=== PATIENT | male | born 1990 | race American Indian/Alaskan Native ===

== ENCOUNTER 2022-03-31 18:58 | Emergency (ER) | payer SELFPAY ==
--- NOTE | 2022-03-31 19:52 | Cat Scan Report ---
CT head/brain wo con INDICATION / CLINICAL INFORMATION: 31 years Male; neuro deficits <6hrs or sx present upon awakening. TECHNIQUE: Routine CT head without contrast. All CT scans at this location are performed using CT dos e reduction for ALARA by means of automated exposure control. COMPARISON: None. FINDINGS: BRAIN / INTRACRANIAL CONTENTS: No acute hemorrhage, mass effect, midline shift, hydrocephalus, or acu te, large territorial infarct. No signs of significant atrophy or chronic infarct. No significant whi te matter abnormality seen. CRANIOCERVICAL JUNCTION: No significant abnormality. ORBITS: No significant abnormality of visualized orbits. SINUSES / MASTOIDS: There is a focal dehiscence of the lamina papyracea on the left, which should be of no clinical significance. ADDITIONAL FINDINGS: None. IMPRESSION: 1. No focal mass, hemorrhage, hydrocephalus, or acute, large territorial infarct. Signer Name: Han Bell MD, III Signed: 03/31/2022 7:48 PM Workstation Name: [id number]
[2022-03-31] MEDS ORDERED: ACETAMINOPHEN 500 MG TAB PO ONE (20:08)
[2022-03-31 21:01] LABS: Basophils % (Auto) 0.1 % (0.0-1.8); Eosinophils # (Auto) 0.1 K/mm3 (0.0-0.4); Eosinophils % (Auto) 0.5 % (0.0-4.3); Hematocrit 45.8 % (35.5-45.6); Hemoglobin 14.5 gm/dl (11.8-15.2); Lymphocytes # (Auto) 2.9 K/mm3 (1.2-5.4); Lymphocytes % (Auto) 22.8 % (13.4-35.0); Mean Corpuscular HGB Conc 32 % (32-34); Mean Corpuscular Volume 88 fl (84-94); Monocytes # (Auto) 0.8 K/mm3 (0.0-0.8); Monocytes % (Auto) 6.5 % (0.0-7.3); Platelet Count 195 K/mm3 (140-440); Red Blood Count 5.21 M/mm3 (3.65-5.03); Red Cell Distribution Width 15.6 % (13.2-15.2)
[2022-03-31 21:06] LABS: BUN/Creatinine Ratio 6; Blood Urea Nitrogen 9 mg/dL (9-20); Calcium 8.9 mg/dL (8.4-10.2); Hemolysis Index 27
[2022-03-31 21:10] LABS: INR 1.03 (0.87-1.13)
[2022-03-31 21:11] LABS: Partial Thromboplastin Time 31.8 Sec. (24.2-36.6)
[2022-03-31] MEDS ORDERED: diphenhydrAMINE 50 MG/ML VIAL IV ONE (23:16)
[2022-03-31] MEDS ORDERED: KETOROLAC 30 MG/1 ML INJ IV ONE (23:16)
[2022-03-31] MEDS ORDERED: METOCLOPRAMIDE 10 MG/2 ML INJ IV ONE (23:16)
--- NOTE | 2022-04-01 00:56 | Emergency Department Report ---
ED Headache HPI - General Chief Complaint: Neuro Symptoms/Deficit Stated Complaint: MIGRAINES/LT SIDE NUMBNESS/VISION ISSUES Source: patient - History of Present Illness Initial Comments: Patient is a 31-year-old -Vietnamese male with no past medical history who presents to the ED with complaint of acute onset persistent intractable headache in the frontal scalp that radiates to the parietal scalp for the last 2 days, worse in the last 6 hours. Patient states that the pain is constant and persistent with photophobia and nausea. Patient states that he took [id number] medications with no relief. Patient denies traumatic injury, fall, heavy lifting, chest pain or shortness of breath, fever, chills, nasal and sinus congestion, sore throat, dysphagia, dysphonia, neck pain or change in vision, seizures, dizziness or syncope. Timing/Duration: waxing and waning, other (2 days) Quality: severe, constant, pressure, sharp Head Injury Location: frontal Recent Head Trauma: no recent headache/trauma Associated Symptoms: denies symptoms, facial pain, nausea/vomiting. denies: confusion, fever/chills, flushing, loss of consciousness, nasal congestion, nasal drainage, numbness in legs/feet, rash, seizures, sinus infection, stiff neck, vision changes, weakness Allergies/Adverse Reactions: Allergies No Known Allergies Allergy (Verified 03/31/22 19:24) Home Medications: Ambulatory Orders Amoxicillin/K Clav Tab [Augmentin 875 mg] 1 tab PO Q12HR #20 tab 04/01/22 Butalb/Acetamin/Caff 50-325-40 [Fioricet 50-325-40] 1 - 2 tab PO Q6HR PRN #15 tab 04/01/22 Ibuprofen [Motrin] 600 mg PO Q8H PRN #24 tablet 04/01/22 Ondansetron [Zofran Odt] 4 mg PO Q8HR PRN #15 tab.rapdis 04/01/22 ED Review of Systems ROS: Stated complaint: MIGRAINES/LT SIDE NUMBNESS/VISION ISSUES Other details as noted in HPI Constitutional: denies: chills, fever Eyes: denies: eye pain, eye discharge, vision change ENT: other (frontal sinus pain and pressure). denies: ear pain, throat pain Respiratory: denies: cough, shortness of breath, wheezing Cardiovascular: denies: chest pain, palpitations Endocrine: no symptoms reported Gastrointestinal: denies: abdominal pain, nausea, vomiting, diarrhea Genitourinary: denies: urgency, dysuria Musculoskeletal: denies: back pain, joint swelling, arthralgia Skin: denies: rash, lesions Neurological: headache (frontal). denies: weakness, paresthesias Psychiatric: denies: anxiety, depression Hematological/Lymphatic: denies: easy bleeding, easy bruising ED Past Medical Hx - Medications Home Medications: Home Medications Medication Instructions Recorded Confirmed Last Taken Type Amoxicillin/K Clav Tab [Augmentin 1 tab PO Q12HR #20 tab 04/01/22 Unknown Rx 875 mg] Butalb/Acetamin/Caff 50-325-40 1 - 2 tab PO Q6HR PRN #15 tab 04/01/22 Unknown Rx [Fioricet 50-325-40] Ibuprofen [Motrin] 600 mg PO Q8H PRN #24 tablet 04/01/22 Unknown Rx Ondansetron [Zofran Odt] 4 mg PO Q8HR PRN #15 tab.rapdis 04/01/22 Unknown Rx ED Physical Exam - General Limitations: No Limitations General appearance: alert, in no apparent distress - Head Head exam: Present: atraumatic, normocephalic, normal inspection - Eye Eye exam: Present: normal appearance, PERRL, EOMI Pupils: Present: normal accommodation - ENT ENT exam: Present: normal exam, normal orophraynx, mucous membranes moist, TM's normal bilaterally, normal external ear exam - Neck Neck exam: Present: normal inspection, full ROM. Absent: tenderness - Respiratory Respiratory exam: Present: normal lung sounds bilaterally. Absent: respiratory distress, wheezes, rales, rhonchi, chest wall tenderness, accessory muscle use, decreased breath sounds, prolonged expiratory - Cardiovascular Cardiovascular Exam: Present: normal rhythm, bradycardia, normal heart sounds. Absent: systolic murmur, diastolic murmur, rubs, gallop - GI/Abdominal GI/Abdominal exam: Present: soft, normal bowel sounds. Absent: tenderness, guarding, rebound, hyperactive bowel sounds, hypoactive bowel sounds, organomegaly - Extremities Exam Extremities exam: Present: normal inspection, full ROM, normal capillary refill. Absent: tenderness - Back Exam Back exam: Present: normal inspection, full ROM. Absent: tenderness, CVA tenderness (R), CVA tenderness (L), muscle spasm, paraspinal tenderness, vertebral tenderness - Neurological Exam Neurological exam: Present: alert, oriented X3, CN II-XII intact, normal gait, reflexes normal - Psychiatric Psychiatric exam: Present: normal affect, normal mood - Skin Skin exam: Present: warm, dry, intact, normal color. Absent: rash ED Course Vital Signs 03/31/22 19:20 Temperature 97.9 F Pulse Rate 57 L Respiratory 18 Rate Blood Pressure 126/83 O2 Sat by Pulse 96 Oximetry ED Medical Decision Making - Lab Data Result diagrams: 03/31/22 20:21 03/31/22 20:21 - Radiology Data Radiology results: report reviewed, image reviewed [facility] [address] [place] [address] Cat Scan Report Signed Patient: DALIA REYES MR#: [id number] : 1990 Acct:[id number] Age/Sex: 31 / M ADM Date: 03/31/22 Loc: ED Attending Dr: Ordering Physician: JOSE BAKER MD Date of Service: 03/31/22 Procedure(s): CT head/brain wo con Accession Number(s): [id number] cc: JOSE BAKER MD CT head/brain wo con INDICATION / CLINICAL INFORMATION: 31 years Male; neuro deficits <6hrs or sx present upon awakening. TECHNIQUE: Routine CT head without contrast. All CT scans at this location are performed using CT dose reduction for ALARA by means of automated exposure control. COMPARISON: None. FINDINGS: BRAIN / INTRACRANIAL CONTENTS: No acute hemorrhage, mass effect, midline shift, hydrocephalus, or acute, large territorial infarct. No signs of significant atrophy or chronic infarct. No significant white matter abnormality seen. CRANIOCERVICAL JUNCTION: No significant abnormality. ORBITS: No significant abnormality of visualized orbits. SINUSES / MASTOIDS: There is a focal dehiscence of the lamina papyracea on the left, which should be of no clinical significance. ADDITIONAL FINDINGS: None. IMPRESSION: 1. No focal mass, hemorrhage, hydrocephalus, or acute, large territorial infarct. Signer Name: Han Bell MD, III Signed: 03/31/2022 7:48 PM Workstation Name: [id number] Transcribed By: HR Dictated By: Han Bell MD Electronically Authenticated By: Han Bell MD Signed Date/Time: 03/31/221947 DD/ 45 TD/TT: - Medical Decision Making This is a 31-year-old -Vietnamese male with no past medical history who presents to the ED with complaint of acute onset persistent intractable headache in the frontal scalp that radiates to the parietal scalp for the last 2 days, worse in the last 6 hours. Patient states that the pain is constant and persistent with photophobia and nausea. Patient states that he took oegp-rpm-arhprtu medications with no relief. In the ED, patient is alert and oriented x3 and is not in any distress. Patient is hemodynamically stable. The head CT scan without contrast showed no acute intracranial abnormalities or hemorrhage. All lab test results were reviewedall nonactionable except for acute leukocytosis of 12,900 and creatinine of 1.4. The rest of the lab test results are unremarkable. Patient was treated for pain in the ED and on reevaluation, patient's headache resolved medication. Patient will discharge home on medications and advised to follow-up with his primary care physician in 7 to 10 days for reevaluation or return to the ED immediately if symptoms get worse. - Differential Diagnosis Migraine headache; sinusitis; sinus headache; tension headache; Critical care attestation.: If time is entered above; I have spent that time in minutes in the direct care of this critically ill patient, excluding procedure time. ED Disposition Clinical Impression: Sinus headache, Nausea and vomiting in adult Acute frontal sinusitis, unspecified Qualifiers: Recurrence: not specified as recurrent Qualified Code(s): J01.10 - Acute frontal sinusitis, unspecified Migraine headache without aura Qualifiers: Status migrainosus presence: without status migrainosus Intractability: not intractable Qualified Code(s): G43.009 - Migraine without aura, not intractable, without status migrainosus Disposition: 01 HOME / SELF CARE / HOMELESS Is pt being admited?: No Does the pt Need Aspirin: No Condition: Stable Instructions: Sinusitis, Adult, [id number], Nausea and Vomiting, Adult, [id number], Migraine Headache, Dcel-nz-[id number] Additional Instructions: All lab test results were reviewed and are all nonactionable. The head CT scan without contrast showed no acute intracranial abnormalities or hemorrhage. Therefore take medications with food, drink plenty of fluids and follow-up with your primary care physician in 7 to 10 days for reevaluation or return to the ED immediately if symptoms get worse. Prescriptions: Amoxicillin/K Clav Tab [Augmentin 875 mg] 1 tab PO Q12HR #20 tab Butalb/Acetamin/Caff 50-325-40 [Fioricet 50-325-40] 1 - 2 tab PO Q6HR PRN #15 tab PRN Reason: Headache Ibuprofen [Motrin] 600 mg PO Q8H PRN #24 tablet PRN Reason: Pain Ondansetron [Zofran Odt] 4 mg PO Q8HR PRN #15 tab.rapdis PRN Reason: Nausea Referrals: [facility] [Provider Group] - 7-10 days Forms: Work/School Release Form(ED) Time of Disposition: 00:55 Print Language: BRAZILIAN
[2022-04-01 01:53] VITALS: BP 136/77
--- NOTE | 2022-04-03 10:11 | Electrocardiograph Report ---
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
== END 2022-04-01 01:40 | disposition home or self-care (01) ==
LOC: ED 18:58
DX: J32.9 Chronic sinusitis, unspecified (principal); R11.2 Nausea with vomiting, unspecified; G43.009 Migraine without aura, not intractable, without status migrainosus
CPT/HCPCS: 36415; 70450; 80048; 84484; 85025; 85610; 85730; 93005; 96374; 96375; 99284; J1200; J1885; J2765